=== PATIENT | female | born 1940 | race Caucasian/White ===

== ENCOUNTER 2021-10-24 20:41 | Inpatient (IN) | payer OTHER ==
[~2021-10-24] VITALS: Ht 152.4 cm; Wt 81.6 kg
[2021-10-24 22:18] LABS: HEMOGLOBIN 13.9 gm/dl (12.3-15.3); RED BLOOD COUNT 4.65 M/UL (4.00-5.10); WHITE BLOOD COUNT 9.3 K/UL (4.5-11.0)
[2021-10-24 22:42] LABS: BUN/CREATININE RATIO 19 (0-10)
[2021-10-25 03:52] LABS: RED BLOOD COUNT 4.46 M/UL (4.00-5.10); WHITE BLOOD COUNT 7.3 K/UL (4.5-11.0)
[2021-10-25 04:03] LABS: BUN/CREATININE RATIO 17 (0-10)
[2021-10-25] MEDS ORDERED: SYMBICORT 16010.2 GM INH (10:58)
[2021-10-25] MEDS ORDERED: PROAIR HFA8.5 GM INH (10:58)
[2021-10-25] MEDS ORDERED: FUROSEMIDE20 MG PO (10:59)
[2021-10-25] MEDS ORDERED: CYANOCOBAL1000 MCG/1 INJ (10:59)
[2021-10-25] MEDS ORDERED: ROPINIROLE HCL2 MG PO (11:00)
[2021-10-25] MEDS ORDERED: AMMONIUM LACTA140 GM TOP (11:00)
[2021-10-25] MEDS ORDERED: MONTELUKAST SOD10 MG PO (11:01)
[2021-10-25] MEDS ORDERED: LOSARTAN POTASS25 MG PO (11:01)
[2021-10-25] MEDS ORDERED: XARELTO20 MG PO (11:02)
[2021-10-27 06:10] LABS: HEMOGLOBIN 13.1 gm/dl (12.3-15.3); RED BLOOD COUNT 4.47 M/UL (4.00-5.10); WHITE BLOOD COUNT 7.4 K/UL (4.5-11.0)
[2021-10-27 08:54] LABS: BUN/CREATININE RATIO 31 (0-10)
[2021-10-27] MEDS ORDERED: GLUCOPHAGE 500500 MG PO (10:55)
[2021-10-27] MEDS ORDERED: LEVOFLOXACIN500 MG PO (10:55)
[2021-10-27] MEDS ORDERED: DEXAMETHASONE 44 MG PO (10:55)
--- NOTE | 2021-10-28 01:07 | NUR ---
pt was given extra 12.5 mg lopressor, MD changed from 12.5 to 25 mg
[2021-10-28 07:22] LABS: HEMOGLOBIN 14.3 gm/dl (12.3-15.3); RED BLOOD COUNT 4.91 M/UL (4.00-5.10); WHITE BLOOD COUNT 8.3 K/UL (4.5-11.0)
[2021-10-28 07:44] LABS: BUN/CREATININE RATIO 36 (0-10)
--- NOTE | 2021-10-28 12:48 | NUR ---
PATIENT HIT CALL LIGHT AND STATES SHE NEEDS AIR. OXYGEN SATURATION WAS CHECKED AND PATIENT WAS 97% ON NASAL CANNULA 2L. PATIENT REASURRED SHE WAS GETTING SUFFICIENT OXYGEN. PATIENT STATED SHE WAS VERY SICK. PATIENT REASURRED SHE WAS MEDICALLY STABLE ENOUGH TO GO HOME, IF SHE FELT OTHERWISE I WOULD CALL THE DOCTOR AND HAVE HIM COME TALK TO HER. PATIENT STATED THE DOCTOR DID TELL HER SHE WAS OK TO GO HOME. PATIENT AGREED WITH DISCHARGE. DISCHARGE PAPERS SIGNED. AWAITING TRANSPORT. REPORT CALLED TO AKBAR AT [facility].
== END 2021-10-28 12:54 | disposition home health service (06) | DRG 177 ==
LOC: ER1 20:41 → M/S 23:10 → CDU 23:10 → M/S 10-25 12:43
PROVIDERS: Family Medicine; Internal Medicine; ADMIT Internal Medicine
PROC: 8E0ZXY6 Isolation (ICD-10-PCS; principal; 2021-10-24)
PROC: XW033E5 Introduction of Remdesivir Anti-infective into Peripheral Vein, Percutaneous Approach, New Technology Group 5 (ICD-10-PCS; 2021-10-24)
PROC: 3E0333Z Introduction of Anti-inflammatory into Peripheral Vein, Percutaneous Approach (ICD-10-PCS; 2021-10-24)
DX: U07.1 COVID-19 (principal); J12.82 Pneumonia due to coronavirus disease 2019; J96.21 Acute and chronic respiratory failure with hypoxia; E87.1 Hypo-osmolality and hyponatremia; N39.0 Urinary tract infection, site not specified; J44.0 Chronic obstructive pulmonary disease with (acute) lower respiratory infection; B96.1 Klebsiella pneumoniae [K. pneumoniae] as the cause of diseases classified elsewhere; I10 Essential (primary) hypertension; M19.91 Primary osteoarthritis, unspecified site; Z96.653 Presence of artificial knee joint, bilateral; E11.9 Type 2 diabetes mellitus without complications; Z86.718 Personal history of other venous thrombosis and embolism; Z79.01 Long term (current) use of anticoagulants; Z85.3 Personal history of malignant neoplasm of breast; Z98.890 Other specified postprocedural states; Z90.12 Acquired absence of left breast and nipple; Z90.710 Acquired absence of both cervix and uterus; Z88.0 Allergy status to penicillin; Z82.49 Family history of ischemic heart disease and other diseases of the circulatory system; Z79.84 Long term (current) use of oral hypoglycemic drugs
CPT/HCPCS: 0240U; 36415; 36600; 71045; 80048; 80053; 81001; 82550; 82553; 82803; 82962; 83036; 83605; 83735; 83880; 84100; 84484; 85025; 85027; 85610; 85652; 86140; 87040; 87070; 87077; 87086; 87186; 87205; 93005; 94640; 94664; 94760; 96374; 96375; 96376; 99285; J0248; J0456; J0696; J1100; J2405; J7030

== ENCOUNTER → 2021-11-02 | Outpatient (CLI) | payer OTHER ==
[~2021-11-02] MED LIST: AMMONIUM LACTA140 GM TOP; CYANOCOBAL1000 MCG/1 INJ; DEXAMETHASONE 44 MG PO; FUROSEMIDE20 MG PO; GLUCOPHAGE 500500 MG PO; LEVOFLOXACIN500 MG PO; LOSARTAN POTASS25 MG PO; MONTELUKAST SOD10 MG PO; PROAIR HFA8.5 GM INH; ROPINIROLE HCL2 MG PO; SYMBICORT 16010.2 GM INH; XARELTO20 MG PO
== END ==
LOC: RT 16:05
DX: R09.02 Hypoxemia (principal)
CPT/HCPCS: 36600; 82803

== ENCOUNTER → 2021-11-02 | Outpatient (CLI) | payer OTHER | LOC: HEART 5 14:19 | DX: Z86.16 Personal history of COVID-19 (principal); J98.11 Atelectasis; R94.2 Abnormal results of pulmonary function studies | CPT/HCPCS: 71046; 94060; 94729 ==